=== PATIENT | female | born 1970 | race Caucasian/White ===

== ENCOUNTER → 2018-01-29 11:57 | Outpatient (CLI) | payer OTHER, SELFPAY ==
[2018-01-29 12:39] LABS: Hematocrit 39.2 % (36-46); Hemoglobin 13.3 g/dL (12.0-16.0); Platelet Count 316 X10^3/uL (150-400); Red Blood Cell Count 4.46 X10^6/uL (4.0-5.2); Red Cell Distribution Width 13.5 % (11.6-14.8); White Blood Cell Count 10.3 X10^3/uL (4.5-11.0)
== END ==
PROVIDERS: Visit Provider Orthopaedic Surgery
DX: Z01.818 Encounter for other preprocedural examination (principal)
CPT/HCPCS: 36415; 85027

== ENCOUNTER → 2019-11-09 12:44 | Outpatient (CLI) | payer OTHER, SELFPAY ==
[2019-11-09 13:57] LABS: Add Manual Diff / Slide Review NO; Basophils Absolute Auto 100 /uL (0-100); Basophils Percent Auto 0.6 % (0-2); Eosinophils Absolute Auto 300 /uL (0-450); Eosinophils Percent Auto 2.6 % (2-4); Hematocrit 39.4 % (36-46); Hemoglobin 13.3 g/dL (12.0-16.0); Lymphocytes Absolute Auto 2800 /uL (1100-4500); Lymphocytes Percent Auto 27.6 % (25-40); Mean Corpuscular HGB Conc 33.8 % (30-36); Mean Corpuscular Volume 88.8 fL (80-100); Monocytes Absolute Auto 700 /uL (0-900); Monocytes Percent Auto 6.9 % (3-14); Neutrophils Absolute Auto 6300 /uL (1500-7000); Neutrophils Percent Auto 62.3 % (50-75); Platelet Count 390 X10^3/uL (150-400); Red Blood Cell Count 4.44 X10^6/uL (4.0-5.2); Red Cell Distribution Width 12.9 % (11.6-14.8); White Blood Cell Count 10.1 X10^3/uL (4.5-11.0)
== END ==
PROVIDERS: Referring Provider Orthopaedic Surgery; Visit Provider Orthopaedic Surgery
DX: Z01.812 Encounter for preprocedural laboratory examination (principal)
CPT/HCPCS: 36415; 85025

== ENCOUNTER 2019-11-10 08:29 | Day surgery (SDC) | payer OTHER, SELFPAY ==
[2019-11-09 12:32] VITALS: BMI 26.9
[2019-11-10] VITALS (13 sets, daily range): BP systolic 126–181; BP diastolic 64–110; PULSE 73–104; RESP 9–32; TEMP 36.5–37.2; O2SAT 91–99; BMI 26.0
--- NOTE | 2019-11-10 | DI.RAD.S_ITS ---
PROCEDURE: XR CERVICAL SPINE 2V OR 3V INDICATIONS: C5-6, C6-7 ACDF MOBI C TECHNIQUE: 2 view(s) of the cervical spine were acquired. COMPARISON: [facility], MR, MR CERVICAL SPINE WITHOUT CONTRAST, 10/13/2019, 9:39. [facility] [place] Moffit, CR, XR CERVICAL SPINE 6+ VIEWS, 10/06/2019, 8:41. FINDINGS: Bones: Immediate postoperative examination after placement of C5-6 and C6-7 articulating intervertebral disc prosthesis devices, establishing normal alignment Soft tissues: No prevertebral soft tissue swelling. IMPRESSION: Normal alignment after articulating intervertebral disc devices at C5-6 and C6-7. Dictated by: Mendez Livingston M.D. on 11/10/2019 at 12:43 Approved by: Mendez Livingston M.D. on 11/10/2019 at 12:44
[2019-11-10] MEDS: LACTATED RINGERS 1,000 ML 42 ML IV ×2 (09:30→13:22)
[2019-11-10] MEDS: ACETAMINOPHEN 325 MG TABLET 975 MG PO (09:31)
[2019-11-10] MEDS: GABAPENTIN 600 MG TABLET PO ×2 (09:31→10:24)
--- NOTE | 2019-11-10 09:58 | PM.PREOP ---
Pre-operative Note Interval Note History & Physical reviewed/Exam performed by Physician: Yes Changes to H&P: No
[2019-11-10] MEDS: CEFAZOLIN 2 GM/100 ML FROZ.PIGGY IV (10:35)
--- NOTE | 2019-11-10 11:02 | SUR.OPER ---
Supine on padded OR bed, head on gel, towel between shoulder blades, arms padded and tucked at side, legs uncrossed, safety belt at thigh, tape over blanket over lower legs .
[2019-11-10] MEDS: BUPIVACAINE 0.25% W/ EPI 30 ML VIAL INJ (11:10)
[2019-11-10] MEDS: THROMBIN (RECOMBINANT) 5,000 UNIT VIAL 5000 UNIT TOP (11:11)
[2019-11-10] MEDS: SODIUM CHLORIDE 0.9% 1,000 ML, GENTAMICIN 80 MG IRR (11:11)
--- NOTE | 2019-11-10 12:30 | PM.OP.1 ---
Operative Date/Time/Diagnoses Date of procedure: 11/10/19 Time of procedure: 12:31 Pre-op diagnosis: Cervical disc herniation with radiculopathy Post-op diagnosis: same Procedure & Clinicians Procedure: C5-6, C6-7 anterior cervical diskectomy and artificial disc replacements Use of microscope Same procedure as scheduled: Yes Indications: [age] year old female with intractable pain and weakness from cervical disc herniations. They had failed conservative management and requested operative intervention. Risks and benefits of surgery were discussed and appropriate consents were obtained. Surgeon: Kendell Silva Office Support Clerk: Leanna Alexander Anesthesia Type: General Operative Notes Findings: None Closure Type: primary Specimen(s): none sent Prosthetic devices, grafts, tissues, transplants, or devices: Miesha Mobi-C Estimated Blood Loss (mL): 5 Procedure in detail: Patient was brought to the operating room and intubated on the table. A time-out was performed. Preoperative antibiotics were given. The neck was prepped and draped in the standard sterile fashion. Using a skin fold, we made a 3 cm oblique incision on the left side. We used Bovie to go through the platysma and then did a standard anterolateral blunt dissection down to the precervical fascia. Fascia was nicked and elevated up. A marker was placed and x-ray was taken for localization. We marked the midline. We then subperiosteally elevated up the longus colli muscles. Self-retaining retractors were placed at C6-7. Wesson pins were placed under x-ray guidance to be parallel to the endplates. We then brought in the microscope. A scalpel used to perform an annulotomy. We then used a combination of pituitaries and curettes and Kerrison to perform a complete anterior diskectomy at C6-7. We took down the PLL and used Kerrison and a nerve hook to remove the large left-sided posterior disc material. At the end we could from the nerve hook cephalad caudally and out the foramen and everything was opened. We distracted open with the parallel flight readiness technician. We then used the horseshoes for sizing. We then used the trials. We then inserted a 17 x 15 x 5 mm size Mobi-C artificial disc replacement under fluoroscopic guidance for positioning. The traction was released and x-ray was checked again. We then went up to the C5-6 level. Scalpel used to perform an annulotomy. Complete diskectomy was performed with curettes, pituitaries, Kerrison's. The PLL was taken down. We removed 3 posterior disc material and posterior osteophytes. A nerve hook was swept and everything was open. We then trialed and placed a 15 x 15 x 5 mm size Mobi-C ADR under fluoroscopic guidance for positioning. The self-retaining retractors and Wesson pins were removed and final x-rays taken. The wound was irrigated. There was no bleeding. The carotid was beating nicely. The platysma was closed. The superficial was closed. The skin was closed. A sterile dressing was placed. They were then extubated and brought to recovery room with no complications. Complications: none Post-operative Condition: stable Disposition: PACU Plan for aftercare: Outpatient, possibly with bed overnight.
[2019-11-10] MEDS: fentaNYL 100 MCG/2 ML INJ IV ×2 (12:50→12:57)
--- NOTE | 2019-11-10 12:54 | SUR.PHASEI ---
Patient arrived from OR, grimacing. Medicated for pain by Anesthesiologist.
[2019-11-10] MEDS: hydrOXYzine 50 MG/ML INJ 25 MG IM (12:58)
--- NOTE | 2019-11-10 13:09 | SUR.PHASEI ---
Report given to Yoli
[2019-11-10] MEDS: ONDANSETRON 4 MG/2 ML INJ IV (13:26)
[2019-11-10] MEDS: OXYCODONE IR 5 MG TABLET PO ×2 (13:26→14:14)
--- NOTE | 2019-11-10 13:34 | SUR.PHASEI ---
Patient tolerating PO fluids without difficulty. Pain 5/10. Oxygen remains at 97% on room air. GCS 15.
--- NOTE | 2019-11-10 15:42 | SUR.PHASEII ---
Order to D/C 3 hours after surgery.
== END 2019-11-10 15:42 | disposition home or self-care (01) ==
LOC: OR 08:30 → AC 08:32
PROVIDERS: Referring Provider Orthopaedic Surgery; Visit Provider Orthopaedic Surgery
PROC: (CPT 22856; principal; 2019-11-10 10:00)
DX: M50.122 Cervical disc disorder at C5-C6 level with radiculopathy (principal); I10 Essential (primary) hypertension; M19.90 Unspecified osteoarthritis, unspecified site
CPT/HCPCS: 22856; 22858; 72040; 76000; C1776; J0690; J1100; J1170; J2250; J2405; J2704; J3010; J3410

== ENCOUNTER → 2019-12-18 11:41 | Outpatient (CLI) | payer OTHER, SELFPAY ==
--- NOTE | 2019-12-18 | DI.MRI.S_ITS ---
PROCEDURE: MR LUMBAR SPINE WO/W CON INDICATIONS: Radiculopathy, lumbar region TECHNIQUE: Noncontrast sagittal T1 spin echo and T2 fast spin echo, sagittal STIR, axial T1 and T2 fast spin echo through the lumbar spine. In cases with scoliosis, additional coronal T2 fast spin echo may be performed. After the administration of contrast, sagittal and axial T1 spin echo with fat saturation through the lumbar spine. COMPARISON: None. FINDINGS: Image quality: Excellent. Alignment and curvature: There is overall straightening of the normal lumbar lordosis. There is minimal retrolisthesis at L4-L5 and mild grade 1 at the L5-S1 level. Marrow: Marrow is of normal overall signal. No acute vertebral body compression fractures. No suspicious marrow enhancement. Spinal cord: Conus medullaris terminates at the L1 level. Visualized spinal cord demonstrates normal signal, without suspicious enhancement. Paraspinous soft tissues: No paravertebral masses or abnormal enhancement. Incidental note is made of a circumaortic left renal vein. T12-L1: Normal appearance. L1-L2: Normal appearance. L2-L3: Normal appearance. L3-L4: The disc height and disk signal are well-preserved. Mild generalized disc bulge is seen. Mild bilateral neural foraminal narrowing is seen. Minimal central canal narrowing is seen. L4-L5: The disc height and disc signal are relatively well-preserved. A moderate disc bulge is seen, which is eccentric to the left. There is a left foraminal disc protrusion seen. There is moderate left-sided and minimal right-sided neural foraminal narrowing seen. There is a focal annular fissure seen posteriorly. Mild central canal narrowing is seen. L5-S1: Moderate loss of disc height is seen. Loss of disc signal is seen. Moderate disc bulge is seen, with a central disc extrusion. There is a focal annular fissure seen posteriorly. Mild facet joint hypertrophy is seen. Moderate central canal narrowing is seen. IMPRESSION: Lower lumbar spine degenerative changes are seen, which are most prominent at the L5-S1 level, where there is a central disc extrusion seen. Moderate bilateral neural foraminal narrowing and moderate central canal narrowing can be seen at this level. Incidental note is made of: Circumaortic left renal vein. Dictated by: Christian Bay M.D. on 12/18/2019 at 11:58 Approved by: Christian Bay M.D. on 12/18/2019 at 12:02
== END ==
PROVIDERS: Referring Provider Orthopaedic Surgery; Visit Provider Orthopaedic Surgery
DX: M51.16 Intervertebral disc disorders with radiculopathy, lumbar region (principal); M51.17 Intervertebral disc disorders with radiculopathy, lumbosacral region; M47.27 Other spondylosis with radiculopathy, lumbosacral region; M48.07 Spinal stenosis, lumbosacral region
CPT/HCPCS: 72158

== ENCOUNTER → 2020-01-12 09:00 | Outpatient (CLI) | payer OTHER, SELFPAY ==
[2020-01-12 09:28] LABS: Add Manual Diff / Slide Review NO; Basophils Absolute Auto 0 /uL (0-100); Basophils Percent Auto 0.4 % (0-2); Eosinophils Absolute Auto 300 /uL (0-450); Hematocrit 36.8 % (36-46); Hemoglobin 12.8 g/dL (12.0-16.0); Lymphocytes Absolute Auto 2000 /uL (1100-4500); Mean Corpuscular HGB Conc 34.9 % (30-36); Mean Corpuscular Hemoglobin 31.1 PG (26-34); Mean Corpuscular Volume 89.1 fL (80-100); Monocytes Absolute Auto 500 /uL (0-900); Monocytes Percent Auto 6.3 % (3-14); Neutrophils Absolute Auto 5800 /uL (1500-7000); Neutrophils Percent Auto 66.3 % (50-75); Platelet Count 296 X10^3/uL (150-400); Red Blood Cell Count 4.13 X10^6/uL (4.0-5.2); Red Cell Distribution Width 13.9 % (11.6-14.8); White Blood Cell Count 8.7 X10^3/uL (4.5-11.0)
== END ==
PROVIDERS: Referring Provider Orthopaedic Surgery; Visit Provider Orthopaedic Surgery
DX: Z01.812 Encounter for preprocedural laboratory examination (principal)
CPT/HCPCS: 36415; 85025

== ENCOUNTER → 2020-01-24 10:13 | Outpatient (CLI) | payer OTHER, SELFPAY ==
[2020-01-25 06:20] LABS: COVID19 Sendout Not Detected (Not Detect)
== END ==
PROVIDERS: Visit Provider Physician Assistant
DX: Z01.818 Encounter for other preprocedural examination (principal)
CPT/HCPCS: 87635

== ENCOUNTER 2020-01-26 10:54 | Inpatient (IN) | payer OTHER, SELFPAY ==
[2020-01-21 08:06] VITALS: BMI 26.9
[2020-01-26] VITALS (14 sets, daily range): BP systolic 124–157; BP diastolic 68–95; PULSE 70–87; RESP 8–19; TEMP 36.2–37.2; O2SAT 97–100; BMI 26.9
--- NOTE | 2020-01-26 | DI.RAD.S_ITS ---
PROCEDURE: XR LUMBAR SPINE 2-3V INDICATIONS: L5-S1 TLIF TECHNIQUE: 2 views of the lumbar spine were acquired. COMPARISON: None. FINDINGS: Bones: Immediate postoperative examination after L5-S1 posterior fusion with transverse pedicle screws and vertical fixation rods and an interbody disc cage prosthesis, maintaining normal alignment and interbody spacing. Soft tissues: Overlying bowel gas pattern is normal. No suspicious soft tissue calcifications. IMPRESSION: Normal alignment established after posterior fusion and interbody disc prosthesis placement. Dictated by: Mendez Livingston M.D. on 01/26/2020 at 15:34 Approved by: Mendez Livingston M.D. on 01/26/2020 at 15:35
[2020-01-26] MEDS: LACTATED RINGERS 1,000 ML 42 ML IV ×2 (11:27→14:54)
--- NOTE | 2020-01-26 12:18 | PM.PREOP ---
Pre-operative Note COVID-19 COVID-19 status: Negative Result date/Date tested (Pos, Neg/Pending): 01/24/20 Interval Note History & Physical reviewed/Exam performed by Physician: Yes Changes to H&P: No
[2020-01-26] MEDS: CEFAZOLIN 2 GM/100 ML FROZ.PIGGY IV ×2 (12:55→20:50)
[2020-01-26] MEDS: ACETAMINOPHEN IV 1,000 MG/100 ML VIAL 400 MG IV (13:20)
--- NOTE | 2020-01-26 13:41 | SUR.OPER ---
Prone on spine table, head in foam head support, padded chest and pelvic supports, gel pad at knees, lower legs supported by pillows; nipples, genitalia and toes free of pressure, arms secured on foam padded arm boards at <90 degrees abduction. Tape over blanket at thigh secured to table.
[2020-01-26] MEDS: VANCOMYCIN 1,000 MG VIAL 1000 MG TOP (13:51)
[2020-01-26] MEDS: BUPIVACAINE 0.5% (PF) 4 ML, MORPHINE-PF 4 MG, BUTORPHANOL 1 MG, fentaNYL 100 MCG INJ (13:52)
[2020-01-26] MEDS: THROMBIN (RECOMBINANT) 5,000 UNIT VIAL 5000 UNIT TOP (13:52)
[2020-01-26] MEDS: SODIUM CHLORIDE 0.9% 1,000 ML, GENTAMICIN 80 MG IRR (13:53)
--- NOTE | 2020-01-26 15:33 | P.OP_ITS ---
Operative Date/Time/Diagnoses Date of procedure: 01/26/20 Time of procedure: 15:33 Pre-op diagnosis: Recurrent lumbar disc herniation with radiculopathy Post-op diagnosis: same Procedure & Clinicians Procedure: Revision L5-S1 diskectomy L5-S1 TLIF (posterior/posterior interbody fusion) with cage and bone graft L5-S1 screws Use of microscope Placement of epidural catheter Same procedure as scheduled: Yes Indications: [age] year old female with intractable pain from recurrent lumbar disc herniation. They had failed conservative management and requested operative intervention. Risks and benefits of surgery were discussed and appropriate consents were obtained. Surgeon: Kendell Silva Diploma Medical Assistant: Felice Moncada Anesthesia Type: General Operative Notes Findings: None Closure Type: primary Specimen(s): none sent Prosthetic devices, grafts, tissues, transplants, or devices: NuVasive MAS Reli ne screws Globus Rise cage Applied: catheter Estimated Blood Loss (mL): 20 Blood products transfused: none Procedure in detail: The patient was brought to the operating room and intubated on the table. A time-out was performed. They were then rolled over to the well- padded John table in the prone position. Preoperative antibiotics were given. The back was prepped and draped in the standard sterile fashion. Using fluoroscopy, a 4 cm longitudinal incision was made to the well-marked left of the midline. We used Bovie to come down to and split the lumbodorsal fascia. Using fluoroscopy and monitoring, we then percutaneously placed Jamshidi needles down the pedicles of L5 and S1 on the left side. These were changed out to guidewires and then we tapped and then placed the NuVasive MAS Reline screw shanks. We then opened up the retractors and used Bovie to clear up the posterolateral gutter as well as medially along the lamina to the spinous processes. A bur was used to decorticate the transverse processes. We brought in the microscope. Using a combination of bur and Kerrison rongeurs, a laminectomy was performed from the left side. We cleared over just past the midline up to the level of her scar. We had to carefully retract the dura medially over the recurrent disc herniation and carefully dissect across the scar until it was retracted safely. A scalpel used to perform an annulotomy and then we removed the recurrent disc herniation with a pituitary. This completed the revision laminectomy and diskectomy at L5-S1. This was separate and distinct from a standard TLIF approach as this was revision surgery with scar with higher complexity and time to dissect and safely retract the nerves. We then began the TLIF prep. A complete facetectomy was performed on this side at L5-S1. We carefully cleaned up the remainder of the foramen until we could easily retract the exiting root as well as clearing medially below the dura and expose the disc space. We performed a diskectomy using a combination of paddles, lexie, pituitaries, and curettes. We distracted the disc using a paddle and locked the retractor in an open position. We then filled the disc space with AttraX bone graft. We then placed the globus Rise cage under fluoroscopy and then filled this in with more bone graft. The distraction on the retractor was released to compress down. This completed the posterior interbody fusion portion of the TLIF at L5-S1. We then placed the screw heads, tessa, and locked down the set screws. The wound was copiously irrigated. A small stab incision was made over the PSIS. We used a Jamshidi needle to aspirate several mL of bone marrow from the pelvis. This was mixed with the remaining bone graft and combined with all of the locally harvested bone graft and placed in the posterolateral gutter for the posterior fusion of the TLIF at L5-S1. An epidural catheter was then placed in the spinal canal by carefully depressing the dura and advancing it 6 cm cephalad under the remaining lamina without resistance. The muscle fascia was closed. The catheter was then injected with a solution containing 4 mL of 0.5% Marcaine, 1 mg Stadol, 4 mg Duramorph, and 100 mcg of fentanyl. This was injected without resistance and the catheter was p ulled. We then went to the opposite side. Again using fluoroscopy, a 3 cm incision was made and Bovie was used to come down to split the fascia. Using neural monitoring and fluoroscopy, Jamshidi needles were advanced down the pedicles of L5 and S1 on the right side. These were switched over guidewires, tapped, and screws placed. We then placed a tessa and locked the set screws on this side. The wound was irrigated. The fascia was closed. Vancomycin powder was placed in the wounds. The superficial and skin were closed. A sterile dressing was placed. The patient was then rolled over extubated and brought to recovery room without complications. Complications: none Post-operative Condition: stable Disposition: PACU Plan for aftercare: Admit outpatient with bed anticipate 2 days. Up with physical therapy.
[2020-01-26] MEDS: HYDROMORPHONE 2 MG INJ IV ×4 (15:41→15:59)
--- NOTE | 2020-01-26 16:33 | SUR.PHASEI ---
Report called to CASANDRA Hines.
--- NOTE | 2020-01-26 16:44 | SUR.PHASEI ---
Patient transferred to the floor. Report to Flora. VS stable. Dressing CDI. Belongings bag and glasses with patient. IV saline locked.
[2020-01-26] MEDS: LACTATED RINGERS 1,000 ML 125 ML IV (17:37)
[2020-01-26] MEDS: CELECOXIB 200 MG CAPSULE 400 MG PO (17:40)
--- NOTE | 2020-01-26 18:44 | PC.NURSE ---
Addendum entered by Flora Carey R.N. 01/26/20 21:14: @2100 pt reports 2/10 pain; PO pain med for bedtime Original Note: Pt transferred to floor from RENAE @ 1640; RA =100%; LS clear; c/m/s to BLLEs present with residual/chronic tingling to LLE; BL foot SCDs active; surgical drsg to lower back c/d/i; VSS; IV fluids infusing; pt tolerating dinner; IS output 1800; pt oriented to room and call light
[2020-01-26] MEDS: CELECOXIB 200 MG CAPSULE PO (20:50)
[2020-01-26] MEDS: SENNOSIDES 8.6 MG TABLET 17.2 MG PO (20:53)
[2020-01-26] MEDS: DOCUSATE 100 MG CAPSULE PO (20:53)
[2020-01-26] MEDS: OXYCODONE IR 5 MG TABLET PO (21:03)
[2020-01-26] MEDS: hydrOXYzine pamoate 25 MG CAPSULE PO (21:03)
[2020-01-26] MEDS: GABAPENTIN 600 MG TABLET 1800 MG PO (22:10)
[2020-01-27] MEDS: OXYCODONE IR 5 MG TABLET PO ×4 (01:16→17:29)
[2020-01-27] MEDS: hydrOXYzine pamoate 25 MG CAPSULE PO ×2 (01:16→20:32)
[2020-01-27] MEDS: LACTATED RINGERS 1,000 ML 125 ML IV (01:17)
[2020-01-27 03:26] VITALS: BP 110/65; PULSE 79; RESP 16; TEMP 36.9; O2SAT 98
[2020-01-27 06:01] LABS: Hematocrit 29.6 % (36-46)
[2020-01-27] MEDS: CEFAZOLIN 2 GM/100 ML FROZ.PIGGY IV (06:47)
--- NOTE | 2020-01-27 07:51 | PM.PNPO.1 ---
Subjective Subjective Date Patient Seen: 01/27/20 Time Patient Seen: 07:51 Interval history: Doing fairly well. The sensation feels like it is coming back in the left leg. Pain is about a 3 at rest, worse with any activity. Exam Vital Signs (past 8 hours): - 01/27/20 03:26 Temperature 98.5 F Pulse Rate 79 Respiratory Rate 16 Blood Pressure 110/65 Pulse Oximetry 98 Oxygen Delivery Method Room Air Oxygen Flow Rate 0 Const Orientation: alert and oriented x3 Back/Spine/Pelvis Other: Minimal dry drainage. 5/5 motor both lower extremities Objective Labs Result Diagrams: 01/27/20 05:44 Labs: Laboratory Results - last 24 hr 01/27/20 05:44 Hgb 10.0 L Hct 29.6 L Assessment & Plan Post-op Postoperative Procedures: Procedures Operation Date: 01/26/20 13:15 Actual Procedures Side Surgeon p L5-S1 redo Left discectomy & instrumented fusion (TLIF) w/bone graft Kendell Silva MD She is doing well. Mobilize with therapy today. Anticipate discharge home tomorrow. Quality VTE Deep Vein Thrombosis/Pulmonary Embolism Present on Admission: No
[2020-01-27 08:00] VITALS: BP 114/78; PULSE 76; RESP 16; TEMP 37; O2SAT 100
[2020-01-27] MEDS: DOCUSATE 100 MG CAPSULE PO ×2 (08:28→20:30)
[2020-01-27] MEDS: CELECOXIB 200 MG CAPSULE PO ×2 (08:28→20:30)
[2020-01-27] MEDS: LORATADINE 10 MG TABLET PO (08:28)
[2020-01-27] MEDS: GABAPENTIN 600 MG TABLET 1800 MG PO ×3 (08:28→20:30)
--- NOTE | 2020-01-27 09:10 | PT.IIE ---
Current Diagnoses Intervertebral disc disorders with radiculopathy, lumbar region (01/26/20) Other specified postprocedural states (01/26/20) Surgery Performed Operation Date: 01/26/20 13:15 Actual Procedures p L5-S1 redo Left discectomy & instrumented fusion (TLIF) w/bone graft - Kendell Silva MD Surgical History (Last Updated 01/21/20 @ 08:15 by Meli Villegas RN) H/O cervical spine surgery (Acute 11/10/19) Hx of arthroscopy of knee (Acute) Hx of eye surgery (Acute) Hx of microdiscectomy (Acute 02/03/18) Status post epidural steroid injection (Acute 10/26/19) Medical History (Last Updated 11/09/19 @ 12:37 by Meli Villegas RN) Arthritis (Acute) HTN (hypertension) (Acute) Neck pain (Acute) Physical Therapy Inpatient Evaluation/Re-Eval M1 PT/OT-IP Prior Functional Status Start: 01/27/20 11:34 Freq: NEEDED Status: Active Protocol: Document 01/27/20 09:10 AB (Rec: 01/27/20 12:03 AB [email or web address]) Medical Review Prior Functional Status Medical History Reviewed Yes Communication able to make needs known Mobility and Gait pt stated that she is independent with all mobilities and ambulation without AD Social History Household Members spouse Living Arrangements House Number of Floors (Floors) Two Floors Number of Stairs To Enter/Railing? 2 steps to enter without rail but with L wall bedroom basement: 7 steps with R rail and L ledge +landing+ & steps R rail L wall Home Environment Standard Height Toilet,Walk in Shower Additional Social History Comment has access to a 4WW, FWW and SPC but pt will confirm pt stated that she works from home daughter will stay with pt to assist her M2 PT-IP Current Condition Start: 01/27/20 11:34 Freq: NEEDED Status: Active Protocol: Document 01/27/20 09:10 AB (Rec: 01/27/20 12:03 AB [email or web address]) Physical Therapy Current Condition Current Condition Evaluation Date 01/27/20 Treatment Diagnosis s/p L5S1 revision diskectomy/ TLIF; difficulty in walking Onset Date 01/26/20 Precautions Lumbar Precautions Log Roll,No Twisting,Limit Bending,Lifting Restriction of 10 lbs,Gait Belt above Incisional Area M3 PT-IP Subjective Start: 01/27/20 11:34 Freq: NEEDED Status: Active Protocol: Document 01/27/20 09:10 AB (Rec: 01/27/20 12:03 AB [email or web address]) Subjective Physical Therapy Visit Type Type Initial Evaluation Visit Start Time 09:10 Visit Stop Time 09:44 Total Visit Minutes 34 Number of FLAG CAR DRIVER Visits 0 Physical Therapy Visit Comments Patient Comments pt is agreeable to do PT Therapy Pain Assessment Pain When Pain Assessed At Rest Pain Present Pain Present Pain Reported Location back Intensity 5 Scale Used Numeric (1 - 10) Pain Management Techniques Apply Cold,Re-positioning, Timing of Activity with Medications M4 PT-IP Mobility and Gait Start: 01/27/20 11:34 Freq: NEEDED Status: Active Protocol: Document 01/27/20 09:10 AB (Rec: 01/27/20 12:03 AB [email or web address]) PT-Bed Mobility Assessment Rolling Type of Rolling Log Rolling Supine to Sit Supine to Sit Contact Guard Assistance,1 Person Assistance Scooting Scooting to Edge of Bed Standby Assistance PT-Transfer Assessment Sit to and From Stand Sit to and from Stand Contact Guard Assistance,1 Person Assistance,Use of Upper Extremities Equipment Transfer Assistive Device Gait Belt,Front Wheeled Walker Orthotic/Prosthetic Devices or Brace: No Transfers Transfer Destination Chair Transfer Technique ambulated using FWW Transfer Ability Level of Assist Contact Guard Assistance,1 Person Assistance,Use of Upper Extremities Comments Mobility Comments BP: 120/78 in supine.educated on back precautions and pt able to recall. educated on log roll bed mobility. pt completed bed mobility supine to sit CGA and cues. pt presents with difficulty completing task and requires increase time to complete. pt was able to sit on EOB SBA. completed sit to stand CGA. pt ambulated in room ~ 40 ft using FWW CGA. c/o slight dizziness towards end of ambulation. pt agreed to sit up on chair. positioned pt on chair. BP 128/74. ice pack provided. call light and table placed within reach. Gait Assessment Gait Gait Assistance Required: Standby Assistance Distance (Feet) 40 Able to Maintain Weight Bearing Status Yes During Gait Assistive Devices Assistive Device Gait Belt,Front Wheeled Walker Orthotic/Prosthetic Devices or Brace: No Gait Deviations General Gait Pattern Antalgic,Decreased Stride Length,Decreased Feet Clearance,Step-to Gait Factors Limiting Gait Function Factors Limiting Gait Function Decreased Activity Tolerance, Decreased Sensation,Decreased Strength,Limited Range of Motion,Pain,Poor Balance PT-Balance Assessment Sitting Balance and Reactions Static Sitting Balance Ability Good Dynamic Sitting Balance Ability Good Standing Balance and Reactions Static Standing Balance Ability Fair Dynamic Standing Balance Ability Fair Device Used FWW M5 PT-IP Objective Assessments Start: 01/27/20 11:34 Freq: NEEDED Status: Active Protocol: Document 01/27/20 09:10 AB (Rec: 01/27/20 12:03 AB [email or web address]) Orientation Orientation/Cognition Level of Alertness Alert Orientation Name,Age,Birthday,Month,Date, Year,Day of Week,Place, Situation Language Function Ability No Deficits Noted Safety Awareness Understands Safety Issues Memory Description No Deficits Noted Gross Range of Motion Lower Extremity ROM Assessment Within Functional Limits Strength Lower Extremity Strength Assessment Within Functional Limits Coordination Assessment Gross Coordination Gross Coordination WNL Sensation Assessment Comments Sensation Comments Able to determine light touch during testing but stated that sensation is not 100% and still has some numbness Muscle Tone Muscle Tone WNL Yes M6 PT-IP Treatment Start: 01/27/20 11:34 Freq: NEEDED Status: Active Protocol: Document 01/27/20 09:10 AB (Rec: 01/27/20 12:03 AB [email or web address]) Physical Therapy Treatment Education Education Provided Precautions,Weight Bearing Status,Post-Op Packet,Safety M7 PT-IP Assessment and Plan Start: 01/27/20 11:34 Freq: NEEDED Status: Active Protocol: Document 01/27/20 09:10 AB (Rec: 01/27/20 12:03 AB [email or web address]) PT Summary Assessment and Plan Potential Rehabilitation Potential Good Status of Condition at Evaluation Stable Summary Impairments Pain,ROM,Strength,Balance, Sensation,Bed Mobility, Transfers,Gait,Activity Tolerance Assessment Summary pt requiring CGA with mobility and ambulation using FWW. pt stated that her daughter will be staying with her to assist her at home. caregiver training will be conducted if needed. stair climbing will be completed prior to d/c. Goals Bed Mobility Goal Independent Transfer Goal Independent,Front Wheeled Walker Gait Goal Independent,Front Wheel Walker Gait Distance 150 Other Goals up/down 2 steps using SPC and CAN BANDER OPERATOR CGA up/down 15 steps R rail SBA Days to Meet Goals 5 Frequency of Treatment Frequency Of Treatment Twice a Day Treatment Plan Physical Therapy Treatment Plan Bed Mobility Training,Transfer Training,Gait Training, Therapeutic Exercise,Balance Retraining,Post Op Education, Discharge Planning,Hot or Cold Pack,Neuromuscular Re-ed, Coordination Retraining,Manual Therapy Other Recommendations and Next Treatment ambulation, stair climbing , Focus bed mobility log roll Recommendations To Nursing Amount of Assist Needed 1 Person Assist Discharge Recommendations PT Discharge Recommendations Home with Assistance Equipment Needed for Home Before FWW/SPC Discharge Transportation Needs at Discharge Private Vehicle
--- NOTE | 2020-01-27 09:13 | CM.DANOTE ---
Patient is a 49 year old female who was admitted on 01/26/20 for planned TLIF. Pt has [employer]ALTH[employer] MNT for insurance and her PCP is Dr. Gayla Fuentes. EMR was reviewed. Per Ortho MD, pt tolerated procedure well and if stable may be able to d/c home tomorrow. Per RN, pt's saba cath just removed. PT/OT have been ordered and pending. SW met bedside with pt and explained role and updated whiteboard and pt confirms that she lives at home with her in [facility] and is independent with ADL's at baseline. Pt has not completed any DPOA pwk but her is her informal decision maker. Pt denies any hx of HH or SNF and does not anticipate any needs at discharge and and friend will be available for / assist for as long as needed. Plan: SW to follow for PT/OT initial eval and recommendations towards confirming pt safe for d/c home with and no further identified needs. BILLY Braden Discharge Planning/Care Management CM Discharge Assessment Start: 01/27/20 09:09 Freq: Status: Active Protocol: Document 01/27/20 09:10 BF (Rec: 01/27/20 09:13 [id number]) Discharge Planning Assessment Assigned Publication Editor BILLY Ramírez DPOA/Assigned Designee Name none Advance Directives? No Advance Directives on File No History Provided By Patient,Medical Record Has Patient been admitted in last 30 No days? Prior Living Arrangements House Household Members spouse Type of transporation used prior to Drives own vehicle admit Comment Lives at home with in [facility] and is mostly independent at baseline Independent with ADL's Yes Is patient alert and oriented? Yes Caregiver for Another No Community Services used prior to Physical Therapy admission: Patient/Family Preference OP PT Therapy Barriers to Discharge No Discharge Plan Home Community Services Physical Therapy Transportation Arrangement Spouse available to provide transport at d/c Referrals Initiated None needed Whiteboard Updated in Patient Room with Yes name and ext. # of Publication Editor Review Status In Process Please Provide Date Initial DC 01/27/20 Assessment Was Performed Next Review Type Continued Stay Review Pre-Anesthesia Assessment Start: 01/21/20 08:06 Freq: Status: Active Protocol: Document 01/21/20 08:06 CAB (Rec: 01/21/20 08:17 CAB [id number]) Pre-Anesthesia Assessment PAC Comment C5-7 ACDF 11/10/19 Patient Information Reviewed Via Chart Review H&P Completed Within 30 Days Yes Primary Care Provider Willian Solis Seen Specialist in Last 12 Months Yes Specialist Seen Orthopedist Primary Language Nauruan Sample Body Builder Required No Height 162.56 cm Weight 71.214 kg Body Mass Index (BMI) 26.9 Barriers to Learning None Other Aids No Hx Anesthesia Reactions No Hx Family Anesthesia Reaction No Hx Malignant Hyperthermia No Anesthesia Review Requested No Demand Manager No alcohol intake current alcohol intake frequency 0-2 drinks per day Smoking Status Former smoker how long ago did patient quit smoking quit > 10yrs Substance Use Type other Pain Present Pain Reported Musculoskeletal Symptoms Abnormal Gait,Back Pain, Difficulty Walking,Muscle Spasms,Muscle Weakness, Myalgias,Numbness,Radiating Pain into Limb History of Falling (Recent or History of No ) Patient is completely paralyzed or No completely immobile Mental Status Oriented to own ability Comment Pt is stumbling Is patient on oxygen? No Does patient have BOND/SOB No Hx Sleep Apnea No Currently Taking a Beta Kenneth No Hx Chest Pain No Hx SOB No Hx Syncope or Dizziness No Anti-Coagulant Therapy No Has a Rd Project Manager No Cardiac Testing No Hx Pacemaker/ICD No Pacemaker Rep Required? No Cardiac Clearance Received Not Applicable Urinary Catheter Present No Hx Urinary Self Catheterization No Diabetes No Patient No Lactating No Presence of External or Internal Medical Yes: Cervical disc replacement Devices Have you had any close contact with Unknown, chart review only someone diagnosed with COVID-19? Marital Status Lives With spouse Patient Discharge Plan Description Return Home Advance Directives? No Power of Jalousies Installer No
--- NOTE | 2020-01-27 10:15 | PC.NURSE ---
Assess- Patients lower back dressing is cdi, patient complains of a 4/10 pain, given 1 oxycodone and efffective for pain control. Up with physical therapy to the chair. She is sitting up in the chair now and is comfortable. Michelle taken out and patients urine, clear yellow. Appetite good.
[2020-01-27 12:00] VITALS: BP 111/73; PULSE 86; RESP 16; TEMP 36.9; O2SAT 99
--- NOTE | 2020-01-27 14:38 | PT.IPTN ---
Current Diagnoses Intervertebral disc disorders with radiculopathy, lumbar region (01/26/20) Other specified postprocedural states (01/26/20) Surgery Performed Operation Date: 01/26/20 13:15 Actual Procedures p L5-S1 redo Left discectomy & instrumented fusion (TLIF) w/bone graft - Kendell Silva MD Physical Therapy Treatment Note M2 PT-IP Current Condition Start: 01/27/20 11:34 Freq: NEEDED Status: Active Protocol: Document 01/27/20 09:10 AB (Rec: 01/27/20 12:03 AB [email or web address]) Physical Therapy Current Condition Current Condition Evaluation Date 01/27/20 Treatment Diagnosis s/p L5S1 revision diskectomy/ TLIF; difficulty in walking Onset Date 01/26/20 Precautions Lumbar Precautions Log Roll,No Twisting,Limit Bending,Lifting Restriction of 10 lbs,Gait Belt above Incisional Area M3 PT-IP Subjective Start: 01/27/20 11:34 Freq: NEEDED Status: Active Protocol: Document 01/27/20 14:38 AB (Rec: 01/27/20 16:37 AB [email or web address]) Subjective Physical Therapy Visit Type Type Treatment Note Visit Start Time 14:38 Visit Stop Time 14:57 Total Visit Minutes 19 Number of DOUGHNUT FRYER Visits 0 Physical Therapy Visit Comments Patient Comments pt agreeable to do PT Therapy Pain Assessment Pain When Pain Assessed At Rest Pain Present Pain Present Pain Reported Location back Intensity 5 Scale Used Numeric (1 - 10) Pain Management Techniques Apply Cold,Re-positioning, Timing of Activity with Medications M4 PT-IP Mobility and Gait Start: 01/27/20 11:34 Freq: NEEDED Status: Active Protocol: Document 01/27/20 14:38 AB (Rec: 01/27/20 16:37 AB [email or web address]) PT-Bed Mobility Assessment Rolling Type of Rolling Log Rolling Level of Assist Standby Assistance Supine to Sit Supine to Sit Standby Assistance Sit to Supine Sit to Supine Standby Assistance Scooting Scooting to Edge of Bed Standby Assistance Scooting Up and Down in Bed Standby Assistance PT-Transfer Assessment Sit to and From Stand Sit to and from Stand Standby Assistance Equipment Transfer Assistive Device Gait Belt,Front Wheeled Walker Orthotic/Prosthetic Devices or Brace: No Transfers Transfer Destination Chair Transfer Ability Level of Assist Standby Assistance,Use of Upper Extremities Comments Mobility Comments completed sit to stand from chair SBA. pt ambulated towards the stairs ~ 75 ft using FWW SBA. completed up/ down steps using L rail x 4 reps SBA. ambulated farther ~ 200 ft using FWW SBA. pt completed bed mobility supine< >sit SBA. pt wanted to stay up on chair and transferred from bed to chair using fWW SBA. positioned pt on chair. call light and table placed within reach. Gait Assessment Gait Gait Assistance Required: Standby Assistance Distance (Feet) 200 Able to Maintain Weight Bearing Status Yes During Gait Assistive Devices Assistive Device Gait Belt,Front Wheeled Walker Orthotic/Prosthetic Devices or Brace: No Gait Deviations General Gait Pattern Antalgic,Decreased Stride Length,Decreased Feet Clearance Factors Limiting Gait Function Factors Limiting Gait Function Decreased Activity Tolerance, Decreased Sensation,Decreased Strength,Limited Range of Motion,Pain Stair Climbing Assessment Evaluation Level of Assist On Stairs Standby Assistance Devices Stair Climbing Assistive Devices Left Railing Technique/Endurance Stair Climbing Direction Ascend and Descend Stair Climbing Technique Step Over Step,Step to Step Number of Steps Climbed 3 Stair Climbing Set # Repetitions (reps) 4 Comments Stair Climbing Comments up/down steps using L rail ascending with pt holding on to rail with B hands. pt completed step over step pattern with ascending but with step to step pattern with descending. pt required SBA M5 PT-IP Objective Assessments Start: 01/27/20 11:34 Freq: NEEDED Status: Active Protocol: Document 01/27/20 09:10 AB (Rec: 01/27/20 12:03 AB [email or web address]) Orientation Orientation/Cognition Level of Alertness Alert Orientation Name,Age,Birthday,Month,Date, Year,Day of Week,Place, Situation Language Function Ability No Deficits Noted Safety Awareness Understands Safety Issues Memory Description No Deficits Noted Gross Range of Motion Lower Extremity ROM Assessment Within Functional Limits Strength Lower Extremity Strength Assessment Within Functional Limits Coordination Assessment Gross Coordination Gross Coordination WNL Sensation Assessment Comments Sensation Comments Able to determine light touch during testing but stated that sensation is not 100% and still has some numbness Muscle Tone Muscle Tone WNL Yes M6 PT-IP Treatment Start: 01/27/20 11:34 Freq: NEEDED Status: Active Protocol: Document 01/27/20 14:38 AB (Rec: 01/27/20 16:37 AB [email or web address]) Physical Therapy Treatment Education Education Provided Precautions,Safety M7 PT-IP Assessment and Plan Start: 01/27/20 11:34 Freq: NEEDED Status: Active Protocol: Document 01/27/20 14:38 AB (Rec: 01/27/20 16:37 AB [email or web address]) PT Summary Assessment and Plan Potential Rehabilitation Potential Excellent Summary Impairments Pain,ROM,Strength,Balance, Coordination,Sensation,Tone, Cognition,Bed Mobility, Transfers,Gait,Activity Tolerance Progress Towards Goals Progressing Toward Goals Assessment Summary pt is progressing well with mobility and plans to go home with spouse. pt stated that her spouse was able to get a FWW for her to use. pt may go home when medically stable. Goals Bed Mobility Goal Independent Transfer Goal Independent,Front Wheeled Walker Gait Goal Independent,Front Wheel Walker Gait Distance 150 Other Goals up/down 2 steps using SPC and FOOD MIXER CGA up/down 15 steps R rail SBA Days to Meet Goals 5 Frequency of Treatment Frequency Of Treatment Twice a Day Treatment Plan Physical Therapy Treatment Plan Bed Mobility Training,Transfer Training,Gait Training, Therapeutic Exercise,Balance Retraining,Post Op Education, Discharge Planning,Hot or Cold Pack,Neuromuscular Re-ed, Coordination Retraining,Manual Therapy Other Recommendations and Next Treatment ambulation, stair climbing , Focus bed mobility log roll Recommendations To Nursing Amount of Assist Needed 1 Person Assist Discharge Recommendations PT Discharge Recommendations Home with Assistance Transportation Needs at Discharge Private Vehicle
--- NOTE | 2020-01-27 15:31 | OT.IP.EVAL ---
Current Diagnoses Intervertebral disc disorders with radiculopathy, lumbar region (01/26/20) Other specified postprocedural states (01/26/20) Surgery Performed Operation Date: 01/26/20 13:15 Actual Procedures p L5-S1 redo Left discectomy & instrumented fusion (TLIF) w/bone graft - Kendell Silva MD Past Medical History (Last Updated 11/09/19 @ 12:37 by Meli Villegas, RN) Arthritis (Acute) HTN (hypertension) (Acute) Neck pain (Acute) Surgical History (Last Updated 01/21/20 @ 08:15 by Meli Villegas RN) H/O cervical spine surgery (Acute 11/10/19) Hx of arthroscopy of knee (Acute) Hx of eye surgery (Acute) Hx of microdiscectomy (Acute 02/03/18) Status post epidural steroid injection (Acute 10/26/19) Occupational Therapy Inpatient Evaluation/Re-Eval M1 PT/OT-IP Prior Functional Status Start: 01/27/20 16:36 Freq: NEEDED Status: Active Protocol: Document 01/27/20 15:31 [facility] (Rec: 01/27/20 17:37 [facility] [id number]) Medical Review Prior Functional Status Medical History Reviewed Yes Communication able to make needs known Mobility and Gait pt stated that she is independent with all mobilities and ambulation without AD Activities of Daily Living and IADL's Pt needing increased time to complete ADL's and IADL's due to her back pain. Social History Household Members spouse Living Arrangements House Number of Floors (Floors) Two Floors Number of Stairs To Enter/Railing? 2 steps to enter without rail but with L wall bedroom basement: 7 steps with R rail and L ledge +landing+ & steps R rail L wall Home Environment Standard Height Toilet,Walk in Shower Additional Social History Comment has access to a 4WW, FWW and SPC but pt will confirm pt stated that she works from home daughter will stay with pt to assist her M2 OT-IP Current Condition Start: 01/27/20 16:36 Freq: Status: Active Protocol: Document 01/27/20 15:31 [facility] (Rec: 01/27/20 17:37 [facility] [id number]) Occupational Therapy Current Condition Current Condition Evaluation Date 01/27/20 Treatment Diagnosis Recurrent disc herniation , s/ p L5-S1 TLIF Diagnosis Onset Date 01/26/20 Weight Bearing Status Weight Bearing Status Weight Bear as Tolerated M3 OT- IP Subjective and Pain Start: 01/27/20 16:36 Freq: Status: Active Protocol: Document 01/27/20 15:31 [facility] (Rec: 01/27/20 17:37 [facility] [id number]) OT- Subjective Occupational Therapy Visit Type Type Initial Evaluation Visit Start Time 15:14 Visit Stop Time 15:31 Total Visit Minutes 17 Occupational Therapy Visit Comments Patient Comments Pt willing to work with OT for OT eval. Patient/Caregiver Goals To go home. OT Pain Assessment Pain When Pain Assessed During Mobility Pain Present Pain Present Pain Reported Location back Intensity 4 M4 OT- IP ADL's Start: 01/27/20 16:36 Freq: Status: Active Protocol: Document 01/27/20 15:31 [facility] (Rec: 01/27/20 17:37 [facility] [id number]) OT [id number] Comments OT Self-Feeding Comments NOt at meal time. OT ADL-Grooming Comments OT Grooming Comments Educated to spit into a cup or bend at her hips to spit into to sink in order to follow her back precation for oral care. OT ADL-Dressing Comments OT Dressing Comments Pt states to have family asist for socks. Educated to dress her weaker leg first , left side and then right side. OT ADL-Toileting General Evaluation Toileting Ability Standby Assistance,Minimal Assistance Comments OT Toileting Comments Pt not able to reach during practice to be able to wipe after a bowel movement, educated pt to look at getting a toilet paper aid. Otherwise due to her back precautions, pt not able to reach appropriately will need to have assist. OT ADL-Bathing Comments OT Bathing Comments Pt not wanting to shower at this time. M5 OT- IP IADL's Start: 01/27/20 16:36 Freq: Status: Active Protocol: Document 01/27/20 15:31 [facility] (Rec: 01/27/20 17:37 [facility] [id number]) OT-Instrumental Activities of Daily Living Home Safety Awareness Ability to Problem Solve Emergency Able to Problem Solve Situations Home Safety Comments Pt's family to assist with needs as needed. M6 OT- IP Functional Cognition Start: 01/27/20 16:36 Freq: Status: Active Protocol: Document 01/27/20 15:31 [facility] (Rec: 01/27/20 17:37 [facility] [id number]) Cognitive Factors Limiting Selfcare Function Cognitive Ability Level of Alertness Alert Patient Orientation Name,Age,Birthday,Month,Date, Year,Day of Week,Place, Situation Attention Span Ability Capable of Focused Attention, Capable of Sustained Attention Ability to Follow Commands Able to Follow Multi-Step Commands Cognitive Comments Cognitive Assessment Comments Pt at baseline and good awareness of back precautions and need for assist. OT- Vision and Hearing OT- Hearing Assessment OT- Hearing Assessment WFL OT- Vision Assessment Visual Acuity WFL M7 OT- IP Mobility and Balance Start: 01/27/20 16:36 Freq: Status: Active Protocol: Document 01/27/20 15:31 [facility] (Rec: 01/27/20 17:37 [facility] [id number]) OT-Transfer Assessment Sit to and From Stand Sit to and from Stand Standby Assistance Transfers Transfer Ability Standby Assistance Technique Transfer Destination Chair,Toilet Devices Transfer Assistive Devices Gait Belt,Front Wheeled Walker Comments Mobility Comments SBA with FWW, pt's to get FWW for pt. OT- Balance Assessment Sitting Balance and Reactions Static Sitting Balance Ability Normal Dynamic Sitting Balance Ability Good Standing Balance and Reactions Static Standing Balance Ability Fair M8 OT- IP Objective Assessments Start: 01/27/20 16:36 Freq: Status: Active Protocol: Document 01/27/20 15:31 [facility] (Rec: 01/27/20 17:37 [facility] [id number]) OT Gross Range of Motion Upper Extremity Range of Motion Assessment Within Functional Limits OT Strength Upper Extremity Strength Assessment Within Functional Limits M9 OT- IP Assessment and Plan Start: 01/27/20 16:36 Freq: Status: Active Protocol: Document 01/27/20 15:31 [facility] (Rec: 01/27/20 17:37 [facility] [id number]) OT Summary Assessment and Plan Potential Rehabilitation Potential Excellent Analytic Complexity at Evaluation Low Summary OT Impairments Balance,Functional Mobility, Dressing,Toileting,Bathing, Shower Transfers Progress Towards Goals Progressing Toward Goals Assessment Summary Pt low complexity doing well and main barriers are steps and now not able to do her own pericare needs and able to suggest for pt to get a toilet paper aid. Pt has a supportive family to asisst at home. Pt looking to go home tomorrow. Goals Shower Transfer Goal Standby Assistance Patient/Caregiver Education Goal Demonstrate Post-Op Precautions Days to Meet Goals 1 Frequency of Treatment Frequency Of Treatment Once a Day Treatment Plan OT Treatment Plan Patient/Family Education, Discharge Planning Other Treatment Recommendations and Next Shower if pt willing. Treatment Focus Discharge Recommendations OT Discharge Recommendations Home with Assistance Home Equipment Needs FWW Transportation Needs at Discharge Private Vehicle
[2020-01-27 15:37] VITALS: BP 128/75; PULSE 83; RESP 20; TEMP 37.1; O2SAT 100
--- NOTE | 2020-01-27 16:54 | PC.NURSE ---
Addendum entered by Flora Carey R.N. 01/27/20 22:15: @ 2200 pt c/o blood in sputum when brushing teeth, saying it wasn't from my teeth, it was from my throat; I feel like my throat has a mucus plug in it. Slight redness noted to uvula. Pt would like to speak with doctor about her throat in the morning. Original Note: Pt reports 4/10 pain to lower back; ice to back, sitting up in chair; in room; IS 1800, ls clear, O2 XI=700%; SCDs off for activity; c/m/s present to Allison, PPP; call light within reach
[2020-01-27] MEDS: OXYCODONE IR 5 MG TABLET 10 MG PO ×2 (17:44→20:29)
[2020-01-27] MEDS: SENNOSIDES 8.6 MG TABLET 17.2 MG PO (20:30)
[2020-01-27 20:43] VITALS: BP 129/78; PULSE 85; RESP 18; TEMP 37.1
[2020-01-28] MEDS: OXYCODONE IR 5 MG TABLET 10 MG PO ×4 (01:28→16:54)
[2020-01-28 01:36] VITALS: BP 125/80; PULSE 89; RESP 16; TEMP 36.8; O2SAT 99
--- NOTE | 2020-01-28 06:50 | PM.PNPO.1 ---
Subjective Subjective Date Patient Seen: 01/28/20 Time Patient Seen: 06:50 Interval history: The epidural wore off yesterday and she has been having increasing pain. It is about 9/10 right now. A large amount of pain in the buttock and some radiation going down the left leg again Exam Vital Signs (past 8 hours): - 01/28/20 01:36 Temperature 98.2 F Pulse Rate 89 Respiratory Rate 16 Blood Pressure 125/80 Pulse Oximetry 99 Oxygen Delivery Method Room Air Oxygen Flow Rate 0 Const Orientation: alert and oriented x3 Back/Spine/Pelvis Other: Mild unchanged drainage on dressing. 5/5 motor both lower extremities. Objective Labs Result Diagrams: 01/27/20 05:44 Labs: Laboratory Results - last 24 hr 01/27/20 05:44 Hgb 10.0 L Hct 29.6 L Assessment & Plan Post-op Postoperative Procedures: Procedures Operation Date: 01/26/20 13:15 Actual Procedures Side Surgeon p L5-S1 redo Left discectomy & instrumented fusion (TLIF) w/bone graft Kendell Silva MD I think this is probably postoperative inflammation. I offered to give her some steroid medication but she does not like the side effects from steroids so we will hold off on that now. She would like to just go up on her regular gabapentin. If this settles down could possibly go home today. If not may need 1 more day for pain control. Quality VTE Deep Vein Thrombosis/Pulmonary Embolism Present on Admission: No
[2020-01-28 07:41] VITALS: BP 124/81; PULSE 95; RESP 16; TEMP 37.6; O2SAT 95
[2020-01-28] MEDS: CELECOXIB 200 MG CAPSULE PO ×2 (08:39→20:50)
[2020-01-28] MEDS: DOCUSATE 100 MG CAPSULE PO ×2 (08:39→20:50)
[2020-01-28] MEDS: GABAPENTIN 600 MG TABLET 1800 MG PO ×4 (08:39→20:50)
[2020-01-28] MEDS: LORATADINE 10 MG TABLET PO (08:39)
[2020-01-28] MEDS: ENSKYCE 2 EACH PO (09:06)
--- NOTE | 2020-01-28 10:49 | PT.IPTN ---
Current Diagnoses Intervertebral disc disorders with radiculopathy, lumbar region (01/26/20) Other specified postprocedural states (01/26/20) Surgery Performed Operation Date: 01/26/20 13:15 Actual Procedures p L5-S1 redo Left discectomy & instrumented fusion (TLIF) w/bone graft - Kendell Silva MD Physical Therapy Treatment Note M2 PT-IP Current Condition Start: 01/27/20 11:34 Freq: NEEDED Status: Active Protocol: Document 01/27/20 09:10 AB (Rec: 01/27/20 12:03 AB [email or web address]) Physical Therapy Current Condition Current Condition Evaluation Date 01/27/20 Treatment Diagnosis s/p L5S1 revision diskectomy/ TLIF; difficulty in walking Onset Date 01/26/20 Precautions Lumbar Precautions Log Roll,No Twisting,Limit Bending,Lifting Restriction of 10 lbs,Gait Belt above Incisional Area M3 PT-IP Subjective Start: 01/27/20 11:34 Freq: NEEDED Status: Active Protocol: Document 01/28/20 10:10 SP (Rec: 01/28/20 17:35 SP [id number]) Subjective Physical Therapy Visit Type Type Treatment Note Visit Start Time 10:10 Visit Stop Time 10:49 Total Visit Minutes 39 Number of ALL SOURCE COLLECTION MANAGER Visits 1 Physical Therapy Visit Comments Patient Comments Pt agreeable to working with therapy on second attempt, in pain earlier. Patient Goals Return home with family Therapy Pain Assessment Pain When Pain Assessed At Rest Pain Present Pain Present Pain Reported Location back Intensity 7 Scale Used 7/10 at rest, 8/10 with mobililty (pre medicated) Pain Management Techniques Apply Cold,Modification of Treatment,Re-positioning, Timing of Activity with Medications M4 PT-IP Mobility and Gait Start: 01/27/20 11:34 Freq: NEEDED Status: Active Protocol: Document 01/28/20 10:10 SP (Rec: 01/28/20 17:35 SP [id number]) PT-Bed Mobility Assessment Rolling Type of Rolling Log Rolling,Bilateral Level of Assist Contact Guard Assistance,1 Person Assistance Supine to Sit Supine to Sit Contact Guard Assistance,1 Person Assistance Sit to Supine Sit to Supine Minimal Assistance,Bedrails Scooting Scooting to Edge of Bed Contact Guard Assistance PT-Transfer Assessment Sit to and From Stand Sit to and from Stand Contact Guard Assistance, Minimal Assistance,1 Person Assistance,Use of Upper Extremities Equipment Transfer Assistive Device Gait Belt,Front Wheeled Walker Orthotic/Prosthetic Devices or Brace: No Transfers Transfer Destination Bed Transfer Technique ambulated using FWW Transfer Ability Level of Assist Contact Guard Assistance,Use of Upper Extremities Comments Mobility Comments Pt in to much pain earlier in am toileting with PR MANAGER, when arrived. Pt premedicated and rested when arrived later am reporting 7/10 pain but willing to try activity. log roll SBA with cuing and education for shld/knees together log roll with self contact hand on knees CGA completed using bed rail. L side lying to sit CGA at L shld and self scoot to EOB with required increase time due to pain. Sit to stand successful on 2nd attempt using FWW and Min A with cuing for B quad activation knee extension to standing and UE heavy WB on FWW with push from bed. Instructed patient wt shifting and smal march pre gait movement. Pt was able to ambulate further distance into hallway around nursing station 212 ft using FWW CGA- SBA with 3 stopped stand rests , declined w/c follow I can do this just need to stand for a second. Sitting to supine when returned to room Min A for LLE into bed and occasional cuing for centering herself. Educated/instructed patient in core engagement to assist spinal stabilization during mobility and supine with heel slides and use of pillows under thighs for LB comfort/support. Pt had all needs and and call light in reach before left. Gait Assessment Gait Gait Assistance Required: Standby Assistance,Contact Guard Assist,1 Person Assist Distance (Feet) 212 Able to Maintain Weight Bearing Status Yes During Gait Assistive Devices Assistive Device Gait Belt,Front Wheeled Walker Orthotic/Prosthetic Devices or Brace: No Gait Deviations General Gait Pattern Antalgic,Decreased Stride Length,Decreased Feet Clearance Factors Limiting Gait Function Factors Limiting Gait Function Decreased Activity Tolerance, Decreased Sensation,Decreased Strength,Limited Range of Motion,Pain Comments Gait Comments See mobility comments. Stair Climbing Assessment Comments Stair Climbing Comments Pt declined due to elevated pain reported. PT-Balance Assessment Sitting Balance and Reactions Static Sitting Balance Ability Normal Dynamic Sitting Balance Ability Good Standing Balance and Reactions Static Standing Balance Ability Fair Dynamic Standing Balance Ability Fair Device Used FWW M5 PT-IP Objective Assessments Start: 01/27/20 11:34 Freq: NEEDED Status: Active Protocol: Document 01/27/20 09:10 AB (Rec: 01/27/20 12:03 AB [email or web address]) Orientation Orientation/Cognition Level of Alertness Alert Orientation Name,Age,Birthday,Month,Date, Year,Day of Week,Place, Situation Language Function Ability No Deficits Noted Safety Awareness Understands Safety Issues Memory Description No Deficits Noted Gross Range of Motion Lower Extremity ROM Assessment Within Functional Limits Strength Lower Extremity Strength Assessment Within Functional Limits Coordination Assessment Gross Coordination Gross Coordination WNL Sensation Assessment Comments Sensation Comments Able to determine light touch during testing but stated that sensation is not 100% and still has some numbness Muscle Tone Muscle Tone WNL Yes M6 PT-IP Treatment Start: 01/27/20 11:34 Freq: NEEDED Status: Active Protocol: Document 01/28/20 10:10 SP (Rec: 01/28/20 17:35 SP [id number]) Physical Therapy Treatment Other Treatments Other Treatment Performed see mobility comments. M7 PT-IP Assessment and Plan Start: 01/27/20 11:34 Freq: NEEDED Status: Active Protocol: Document 01/28/20 10:10 SP (Rec: 01/28/20 17:35 SP [id number]) PT Summary Assessment and Plan Potential Rehabilitation Potential Excellent Status of Condition at Evaluation Stable Summary Impairments Pain,ROM,Strength,Balance, Coordination,Sensation,Tone, Cognition,Bed Mobility, Transfers,Gait,Activity Tolerance Progress Towards Goals Progressing Toward Goals Assessment Summary pt required CGA- Min A during mobility this am and plans to go home with spouse hoping tomorrow to much pain today. pt stated that her spouse was able to get a FWW for her to use. pt may go home when pain controlled and medically stable. Goals Bed Mobility Goal Independent Transfer Goal Independent,Front Wheeled Walker Gait Goal Independent,Front Wheel Walker Gait Distance 150 Other Goals up/down 2 steps using SPC and SHIPPING CLERK PACKING CGA up/down 15 steps R rail SBA Days to Meet Goals 5 Frequency of Treatment Frequency Of Treatment Twice a Day Treatment Plan Physical Therapy Treatment Plan Bed Mobility Training,Transfer Training,Gait Training, Therapeutic Exercise,Balance Retraining,Post Op Education, Discharge Planning,Hot or Cold Pack,Neuromuscular Re-ed, Coordination Retraining,Manual Therapy Other Recommendations and Next Treatment ambulation, stair climbing , Focus bed mobility log roll Recommendations To Nursing Amount of Assist Needed Standby Assistance Discharge Recommendations PT Discharge Recommendations Home with Assistance Transportation Needs at Discharge Private Vehicle
--- NOTE | 2020-01-28 11:29 | PC.NURSE ---
Addendum entered by Estefanía Srivastvaa R.N. 01/28/20 14:11: Patient given another 10mg of po oxycodone for complaints of 7/10 pain. She complained of a headache and is napping now. Original Note: Patients dressing to lower back is cdi. Patient medicated with 10mg of oxycodone and helpful. Up with 1 PA and walker, moving a bit slower than yesterday. Given control medication. Patients mom is visiting now.
--- NOTE | 2020-01-28 13:56 | OT.IPNOTE ---
Pt at this time wanting to rest and not wanting to do OT treatment today. However willing to shower tomorrow morning for OT.
--- NOTE | 2020-01-28 16:11 | PC.NURSE ---
Pt up ambulating w/PT w/o incidence. \
--- NOTE | 2020-01-28 16:11 | PC.NURSE ---
Addendum entered by Yris Duke R.N. 01/28/20 22:23: Pt had relatively uneventful; evening. Med @ 1700 for discomfort w/good relief. HL intact/patent. Satisfactory post op course. Call light w/in reach, bed alarm on for pt safety. Continue w/plan of care. Original Note: Pt ambulating hallway w/ PT w/o incidence. Lungs clear, SpO2 97% RA HL right hand/intact/patent. Dsg to back CDI. Call light w/in reach. Calls appropriately for needs.
--- NOTE | 2020-01-28 16:16 | PT.IPTN ---
Current Diagnoses Intervertebral disc disorders with radiculopathy, lumbar region (01/26/20) Other specified postprocedural states (01/26/20) Surgery Performed Operation Date: 01/26/20 13:15 Actual Procedures p L5-S1 redo Left discectomy & instrumented fusion (TLIF) w/bone graft - Kendell Silva MD Physical Therapy Treatment Note M2 PT-IP Current Condition Start: 01/27/20 11:34 Freq: NEEDED Status: Active Protocol: Document 01/27/20 09:10 AB (Rec: 01/27/20 12:03 AB [email or web address]) Physical Therapy Current Condition Current Condition Evaluation Date 01/27/20 Treatment Diagnosis s/p L5S1 revision diskectomy/ TLIF; difficulty in walking Onset Date 01/26/20 Precautions Lumbar Precautions Log Roll,No Twisting,Limit Bending,Lifting Restriction of 10 lbs,Gait Belt above Incisional Area M3 PT-IP Subjective Start: 01/27/20 11:34 Freq: NEEDED Status: Active Protocol: Document 01/28/20 15:48 SP (Rec: 01/28/20 17:50 SP [id number]) Subjective Physical Therapy Visit Type Type Treatment Note Visit Start Time 15:48 Visit Stop Time 16:16 Total Visit Minutes 28 Number of CORRECTIONS NURSE Visits 2 Physical Therapy Visit Comments Patient Comments Pt agreeable to working with therapy. Patient Goals Return home with family tomorrow. Therapy Pain Assessment Pain When Pain Assessed At Rest Pain Present Pain Present Pain Reported Location back Intensity 8 Scale Used 8/10 at rest, same with mobility (premedicated) Pain Management Techniques Apply Cold,Modification of Treatment,Re-positioning, Timing of Activity with Medications M4 PT-IP Mobility and Gait Start: 01/27/20 11:34 Freq: NEEDED Status: Active Protocol: Document 01/28/20 15:48 SP (Rec: 01/28/20 17:50 SP [id number]) PT-Bed Mobility Assessment Rolling Type of Rolling Log Rolling,Bilateral Level of Assist Standby Assistance Supine to Sit Supine to Sit Standby Assistance Sit to Supine Sit to Supine Standby Assistance Scooting Scooting to Edge of Bed Standby Assistance,Contact Guard Assistance PT-Transfer Assessment Sit to and From Stand Sit to and from Stand Standby Assistance,Contact Guard Assistance,1 Person Assistance,Use of Upper Extremities Equipment Transfer Assistive Device Gait Belt,Front Wheeled Walker Orthotic/Prosthetic Devices or Brace: No Transfers Transfer Destination Bed Transfer Technique ambulated using FWW Transfer Ability Level of Assist Standby Assistance,Contact Guard Assistance,Use of Upper Extremities Comments Mobility Comments Pt elevated supine when arrived. Log roll to L SBA, L sidelying to sitting <> sBA with occasional cuing as needed for spinal stabilization, sit to stand CGA using FWW with improvement in LE extension into standing this pm. Pt complete some wt shifting and october pre gait activities then was willing to walk into hallway and do some stairs this pm. Ambulated 212 ft with no stopped rests CGA initially then decreased to sBA and ascend descend 6 stairs CGA side stepping L HR with good spinal alignment step to gait then up/down 1 platform step using FWW CGA. Pt complete sitting to supine sBA and CORRECTIONS NURSE refilled cold pack and positioning durign roll onto LB for assist pain control and assisted pillow under legs positioning. Pt had bed alarmed, call light and all needs in reach before left . Gait Assessment Gait Gait Assistance Required: Standby Assistance,Contact Guard Assist Distance (Feet) 212 Able to Maintain Weight Bearing Status Yes During Gait Assistive Devices Assistive Device Gait Belt,Front Wheeled Walker Orthotic/Prosthetic Devices or Brace: No Gait Deviations General Gait Pattern Antalgic,Decreased Stride Length,Decreased Feet Clearance Factors Limiting Gait Function Factors Limiting Gait Function Decreased Activity Tolerance, Decreased Sensation,Decreased Strength,Limited Range of Motion,Pain Comments Gait Comments See mobility comments. Stair Climbing Assessment Evaluation Level of Assist On Stairs Contact Guard Assistance,1 Person Assistance Devices Stair Climbing Assistive Devices Left Railing Technique/Endurance Stair Climbing Direction Ascend and Descend Stair Climbing Technique Step to Step Number of Steps Climbed 3 Stair Climbing Set # Repetitions (reps) 2 Comments Stair Climbing Comments see mobilitiy comments. PT-Balance Assessment Sitting Balance and Reactions Static Sitting Balance Ability Normal Dynamic Sitting Balance Ability Good Standing Balance and Reactions Static Standing Balance Ability Good Dynamic Standing Balance Ability Fair Device Used FWW M5 PT-IP Objective Assessments Start: 01/27/20 11:34 Freq: NEEDED Status: Active Protocol: Document 01/27/20 09:10 AB (Rec: 01/27/20 12:03 AB [email or web address]) Orientation Orientation/Cognition Level of Alertness Alert Orientation Name,Age,Birthday,Month,Date, Year,Day of Week,Place, Situation Language Function Ability No Deficits Noted Safety Awareness Understands Safety Issues Memory Description No Deficits Noted Gross Range of Motion Lower Extremity ROM Assessment Within Functional Limits Strength Lower Extremity Strength Assessment Within Functional Limits Coordination Assessment Gross Coordination Gross Coordination WNL Sensation Assessment Comments Sensation Comments Able to determine light touch during testing but stated that sensation is not 100% and still has some numbness Muscle Tone Muscle Tone WNL Yes M6 PT-IP Treatment Start: 01/27/20 11:34 Freq: NEEDED Status: Active Protocol: Document 01/28/20 15:48 SP (Rec: 01/28/20 17:50 SP [id number]) Physical Therapy Treatment Education Education Provided Precautions,Safety M7 PT-IP Assessment and Plan Start: 01/27/20 11:34 Freq: NEEDED Status: Active Protocol: Document 01/28/20 15:48 SP (Rec: 01/28/20 17:50 SP [id number]) PT Summary Assessment and Plan Potential Rehabilitation Potential Excellent Status of Condition at Evaluation Stable Summary Impairments Pain,ROM,Strength,Balance, Coordination,Sensation,Tone, Cognition,Bed Mobility, Transfers,Gait,Activity Tolerance Progress Towards Goals Progressing Toward Goals,Slow Progress due to Pain Assessment Summary pt required CGA- SBA during all mobility this pm and plans to go home with spouse hoping tomorrow, i mproving in pain this pm. pt stated that her spouse was able to get a FWW for her to use. pt may go home when pain controlled and medically stable. Goals Bed Mobility Goal Independent Transfer Goal Independent,Front Wheeled Walker Gait Goal Independent,Front Wheel Walker Gait Distance 150 Other Goals up/down 2 steps using SPC and SALON SHAMPOO ASSISTANT CGA up/down 15 steps R rail SBA Days to Meet Goals 5 Frequency of Treatment Frequency Of Treatment Twice a Day Treatment Plan Physical Therapy Treatment Plan Bed Mobility Training,Transfer Training,Gait Training, Therapeutic Exercise,Balance Retraining,Post Op Education, Discharge Planning,Hot or Cold Pack,Neuromuscular Re-ed, Coordination Retraining,Manual Therapy Other Recommendations and Next Treatment ambulation further distance, Focus stair climbing SPC 2 step mgt, 14 steps L HR, bed mobility continue log roll Recommendations To Nursing Amount of Assist Needed 1 Person Assist Discharge Recommendations PT Discharge Recommendations Home with Assistance Transportation Needs at Discharge Private Vehicle
[2020-01-28 16:20] VITALS: BP 140/82; PULSE 95; RESP 20; TEMP 37.2; O2SAT 97
[2020-01-28 19:43] VITALS: BP 132/79; PULSE 99; RESP 20; TEMP 37.7
[2020-01-28] MEDS: SENNOSIDES 8.6 MG TABLET 17.2 MG PO (20:53)
[2020-01-28] MEDS: hydrOXYzine pamoate 25 MG CAPSULE PO (20:58)
[2020-01-29 00:05] VITALS: BP 143/80; PULSE 91; RESP 12; TEMP 36.6; O2SAT 98
[2020-01-29] MEDS: OXYCODONE IR 5 MG TABLET 10 MG PO ×2 (00:16→04:21)
[2020-01-29] MEDS: hydrOXYzine pamoate 25 MG CAPSULE PO (04:21)
--- NOTE | 2020-01-29 07:34 | PM.PNPO.1 ---
Subjective Subjective Date Patient Seen: 01/29/20 Time Patient Seen: 07:35 Interval history: She is doing better today. However, sitting causes increasing pain in the posterolateral aspect of the left leg Exam Vital Signs (past 8 hours): - 01/29/20 00:05 Temperature 97.9 F Pulse Rate 91 H Respiratory Rate 12 Blood Pressure 143/80 H Pulse Oximetry 98 Oxygen Delivery Method Room Air Oxygen Flow Rate 0 Const Orientation: alert and oriented x3 Back/Spine/Pelvis Other: CDI. 5/5 motor both lower extremities. Objective Labs Result Diagrams: 01/27/20 05:44 Assessment & Plan Post-op Postoperative Procedures: Procedures Operation Date: 01/26/20 13:15 Actual Procedures Side Surgeon p L5-S1 redo Left discectomy & instrumented fusion (TLIF) w/bone graft Kendell Silva MD Again, I think this is normal postoperative inflammation. She does not normally like taking steroids but she would like to see if this can get better now. I will give her 1 time dose of IV steroids as well as sending her home with orals with a Medrol Dosepak. I will recheck her in a few hours to see how she is doing. Quality VTE Deep Vein Thrombosis/Pulmonary Embolism Present on Admission: No
[2020-01-29 08:10] VITALS: BP 119/79; PULSE 84; RESP 16; TEMP 36.9; O2SAT 99
[2020-01-29] MEDS: DOCUSATE 100 MG CAPSULE PO (08:16)
[2020-01-29] MEDS: CELECOXIB 200 MG CAPSULE PO (08:16)
[2020-01-29] MEDS: OXYCODONE IR 5 MG TABLET PO (08:17)
[2020-01-29] MEDS: DEXAMETHASONE 10 MG/ML VIAL IV (08:17)
[2020-01-29] MEDS: LORATADINE 10 MG TABLET PO (08:17)
[2020-01-29] MEDS: GABAPENTIN 600 MG TABLET 1800 MG PO (08:17)
[2020-01-29] MEDS: ENSKYCE 1 EACH PO (08:20)
[2020-01-29] MEDS: SODIUM CHLORIDE 0.9% FLUSH 10 ML IV (08:21)
--- NOTE | 2020-01-29 09:17 | OT.IP.TRT ---
Current Diagnoses Intervertebral disc disorders with radiculopathy, lumbar region (01/26/20) Other specified postprocedural states (01/26/20) Surgery Performed Operation Date: 01/26/20 13:15 Actual Procedures p L5-S1 redo Left discectomy & instrumented fusion (TLIF) w/bone graft - Kendell Silva MD Occupational Therapy Treatment Note M2 OT-IP Current Condition Start: 01/27/20 16:36 Freq: Status: Active Protocol: Document 01/27/20 15:31 [facility] (Rec: 01/27/20 17:37 [facility] [id number]) Occupational Therapy Current Condition Current Condition Evaluation Date 01/27/20 Treatment Diagnosis Recurrent disc herniation , s/ p L5-S1 TLIF Diagnosis Onset Date 01/26/20 Weight Bearing Status Weight Bearing Status Weight Bear as Tolerated M3 OT- IP Subjective and Pain Start: 01/27/20 16:36 Freq: Status: Active Protocol: Document 01/29/20 10:09 [facility] (Rec: 01/29/20 10:18 [facility] [id number]) OT- Subjective Occupational Therapy Visit Type Type Treatment Note Visit Start Time 08:49 Visit Stop Time 09:17 Total Visit Minutes 28 Occupational Therapy Visit Comments Patient Comments Pt agreeing to shower. Nursing states to change out her dressing after the shower. Patient/Caregiver Goals To go home. OT Pain Assessment Pain When Pain Assessed At Rest Pain Present Pain Present Pain Reported Location back Intensity 6 Scale Used Numeric (1 - 10) M4 OT- IP ADL's Start: 01/27/20 16:36 Freq: Status: Active Protocol: Document 01/29/20 10:09 [facility] (Rec: 01/29/20 10:18 [facility] [id number]) OT KHG-Dyxe-Zpoaibr General Evaluation Self-Feeding Ability Independent OT ADL-Dressing General Eval Upper Body Dressing Ability Minimal Assistance Lower Body Dressing Ability Standby Assistance Comments OT Dressing Comments SBA to use elementary education teacher to doff socks. Pt to bring her clothes later prior to going home. ERON to assist with bra closure. OT ADL-Toileting Comments OT Toileting Comments Per pt able to appropriately reach for her pericare needs and does not feel that she needs to use/get a toilet paper aid at this time. OT ADL-Bathing Bathing Type Bathing Type Shower General Evaluation Bathing Ability Moderate Assistance Areas Needing Assistance Wash/Dry Back,Wash/Dry Lower Extremities Comments OT Bathing Comments Assist to wash dry her feet and back, pt will probably benefit form shower chair with arms, grab bars in the shower, otherwise pt's will have to assist. M5 OT- IP IADL's Start: 01/27/20 16:36 Freq: Status: Active Protocol: Document 01/27/20 15:31 [facility] (Rec: 01/27/20 17:37 [facility] [id number]) OT-Instrumental Activities of Daily Living Home Safety Awareness Ability to Problem Solve Emergency Able to Problem Solve Situations Home Safety Comments Pt's family to assist with needs as needed. M6 OT- IP Functional Cognition Start: 01/27/20 16:36 Freq: Status: Active Protocol: Document 01/29/20 10:09 [facility] (Rec: 01/29/20 10:18 [facility] [id number]) Cognitive Factors Limiting Selfcare Function Cognitive Ability Safety Awareness Underestimates Need for Assistance Cognitive Comments Cognitive Assessment Comments Pt wanting to try to walk without the FWW and emphasized best at this time to use FWW, especially for uneven surfaces as she is still a little unsteady on her feet. M7 OT- IP Mobility and Balance Start: 01/27/20 16:36 Freq: Status: Active Protocol: Document 01/29/20 10:09 [facility] (Rec: 01/29/20 10:18 [facility] [id number]) OT-Transfer Assessment Sit to and From Stand Sit to and from Stand Standby Assistance Transfers Transfer Ability Standby Assistance,Contact Guard Assistance Technique Transfer Destination Chair,Shower Stall Devices Transfer Assistive Devices Gait Belt,Front Wheeled Walker Comments Mobility Comments SBA with FWW , CGA while stepping over the threshold of the shower. P OT- Balance Assessment Sitting Balance and Reactions Static Sitting Balance Ability Normal Dynamic Sitting Balance Ability Good Standing Balance and Reactions Static Standing Balance Ability Good Dynamic Standing Balance Ability Fair M8 OT- IP Objective Assessments Start: 01/27/20 16:36 Freq: Status: Active Protocol: Document 01/27/20 15:31 [facility] (Rec: 01/27/20 17:37 [facility] [id number]) OT Gross Range of Motion Upper Extremity Range of Motion Assessment Within Functional Limits OT Strength Upper Extremity Strength Assessment Within Functional Limits M9 OT- IP Assessment and Plan Start: 01/27/20 16:36 Freq: Status: Active Protocol: Document 01/29/20 10:09 [facility] (Rec: 01/29/20 10:18 [facility] [id number]) OT Summary Assessment and Plan Potential Rehabilitation Potential Excellent Analytic Complexity at Evaluation Low Summary OT Impairments Pain,Balance,Functional Mobility,Bathing,Shower Transfers Progress Towards Goals Progressing Toward Goals Assessment Summary Pt able to tolerate shower today and incorporate good safety for back precautions. Pt looking to go home today with assist from family. Pt emphasized to be sure to use FWW at all times as at time pt wanting to walk without the FWW and still a little unsteady on her feet. Goals Patient/Caregiver Education Goal Demonstrate Post-Op Precautions Days to Meet Goals 1 Frequency of Treatment Frequency Of Treatment Once a Day Discharge Recommendations OT Discharge Recommendations Home with Assistance Transportation Needs at Discharge Private Vehicle
--- NOTE | 2020-01-29 09:47 | PM.DS.1 ---
History of Present Illness History of Present Illness Date Patient Seen: 01/29/20 Time Patient Seen: 09:48 Chief complaint: [id number] Narrative: 49-year-old female with a recurrent lumbar disc herniation at L5-S1. She has had 2 previous herniations at this level, the 2nd time being treated operatively. New symptoms started over a month ago with recurrence of pain in the back and then running down the posterolateral aspect of the left leg. Primarily gluteal and leg pain. She tried medication, and epidural injection, home exercise program, and nothing was helping. She also has a recent history of cervical disc replacement 2 months ago. Discharge Providers Provider Date of admission: 01/26/20 10:54 Discharge Date: 01/29/20 Primary care physician: Gayla Fuentes PA-C Consults: 01/26/20 16:33 Consult to Occupational Therapy Evaluate & Treat Comment: Physician Instructions: Evaluate and treat Consult to Physical Therapy Evaluate & Treat Comment: Physician Instructions: Evaluate and Treat Discharge provider: Kendell Silva MD Summary Hospital Course Discharge Diagnosis: Recurrent lumbar disc herniation at L5-S1 Hospital Course: She is brought to the operating room on 01/26/2020 where she underwent a revision diskectomy and fusion (TLIF) at L5-S1. Postoperatively she gradually began progressing with physical therapy. She had good pain control the 1st day with an epidural at the time of surgery but then began having increasing pain the 2nd day. By the 3rd day she was having recurrence of a fair amount of the left leg pain. She was given a dose of IV steroids and this was much better. She was mobilizing well and able to get up and walk around independently by date of discharge. Status at Discharge Cognitive/behavioral status at discharge: oriented Functional status at discharge: independent ambulation Overall status at discharge: patient is progressing back to baseline Exam Vital Signs (past 8 hours): - 01/29/20 08:10 Temperature 98.5 F Pulse Rate 84 Respiratory Rate 16 Blood Pressure 119/79 Pulse Oximetry 99 Oxygen Delivery Method Room Air Oxygen Flow Rate 0 Const Orientation: alert and oriented x3 Back/Spine/Pelvis Other: Mild drainage. 5/5 motor both lower extremities. Objective Labs Result Diagrams: 01/27/20 05:44 Discharge Plan Discharge Plan Patient Disposition: Home Discharge comment: Follow-up 1.5 weeks Discharge orders & Medications Prescriptions: New hydroxyzine pamoate 25 mg Capsule 25 mg PO Q4HR PRN (Reason: spasms) Qty: 20 RF: 0 oxycodone 5 mg Tablet 5 mg PO Q3HR PRN (Reason: Pain, Moderate (4-6)) Qty: 30 RF: 0 celecoxib [Celebrex] 200 mg Capsule 200 mg PO BID PRN (Reason: pain) Qty: 60 RF: 0 methylprednisolone [Medrol (Darius)] 4 mg tablets,dose pack See Rx Instructions .ROUTE .COMPLEX Qty: 21 RF: 0 Continued pregabalin [Lyrica] 150 mg Capsule 150 mg PO BID RF: 0 gabapentin 600 mg Tablet 600 mg PO TID RF: 0 loratadine [Claritin] 10 mg Tablet 10 mg PO DAILY RF: 0 Discontinued naproxen [Naprosyn] 500 mg Tablet 500 mg PO BID RF: 0 hydroxyzine pamoate [Vistaril] 25 mg Capsule 25 mg PO Q6H PRN (Reason: Spasms) RF: 0 Follow up/Referrals: Gayla Murphy PA-C [Primary Care Provider] - Diet/Activity/Treatments Diet: Diet as Tolerated Activity: limited BLT 10 lbs lift Skin/Wound/Dressing Care Report to your healthcare provider any signs of infection, such as:: chills, fever, night sweats, increased pain, unusual drainage and unusual redness Dressing: may change dressing and shower Saturday Visit Report/Discharge Packet Instructions: DI for Prescription Opioid Use, DI for Transforaminal Lumbar Interbody Fusion Stand Alone Forms: Surgery Discharge Visit Report Forms: Patient Portal/API, Stroke Signs & Symptoms Discharge Data Primary Care Provider: Gayla Murphy Quality VTE Deep Vein Thrombosis/Pulmonary Embolism Present on Admission: No
--- NOTE | 2020-01-29 09:55 | PC.NURSE ---
Patient is going to discharge to home today. Given 1 oxycodone and helpful with pain. Back dressing changed after patients shower. Given 1 dose of steroids. She is resting comfortably.
--- NOTE | 2020-01-29 11:17 | PT.IPTN ---
Current Diagnoses Intervertebral disc disorders with radiculopathy, lumbar region (01/26/20) Other specified postprocedural states (01/26/20) Surgery Performed Operation Date: 01/26/20 13:15 Actual Procedures p L5-S1 redo Left discectomy & instrumented fusion (TLIF) w/bone graft - Kendell Silva MD Physical Therapy Treatment Note M2 PT-IP Current Condition Start: 01/27/20 11:34 Freq: NEEDED Status: Discharge Protocol: Document 01/27/20 09:10 AB (Rec: 01/27/20 12:03 AB [email or web address]) Physical Therapy Current Condition Current Condition Evaluation Date 01/27/20 Treatment Diagnosis s/p L5S1 revision diskectomy/ TLIF; difficulty in walking Onset Date 01/26/20 Precautions Lumbar Precautions Log Roll,No Twisting,Limit Bending,Lifting Restriction of 10 lbs,Gait Belt above Incisional Area M3 PT-IP Subjective Start: 01/27/20 11:34 Freq: NEEDED Status: Discharge Protocol: Document 01/29/20 10:53 KS (Rec: 01/29/20 12:35 KS [id number]) Subjective Physical Therapy Visit Type Type Treatment Note Visit Start Time 10:53 Visit Stop Time 11:17 Total Visit Minutes 24 Number of CORK TILE FLOOR LAYER Visits 3 Physical Therapy Visit Comments Patient Comments Pt agreeable to working with therapy. Pts present for caregiver training. M4 PT-IP Mobility and Gait Start: 01/27/20 11:34 Freq: NEEDED Status: Discharge Protocol: Document 01/29/20 10:53 KS (Rec: 01/29/20 12:35 KS [id number]) PT-Bed Mobility Assessment Rolling Type of Rolling Log Rolling,Roll to Left Level of Assist Standby Assistance Supine to Sit Supine to Sit Standby Assistance Sit to Supine Sit to Supine Standby Assistance Scooting Scooting to Edge of Bed Standby Assistance Scooting Up and Down in Bed Standby Assistance PT-Transfer Assessment Sit to and From Stand Sit to and from Stand Standby Assistance,Contact Guard Assistance,1 Person Assistance,Use of Upper Extremities Equipment Transfer Assistive Device Gait Belt,Front Wheeled Walker Orthotic/Prosthetic Devices or Brace: No Transfers Transfer Destination Bed Transfer Technique ambulated using FWW Transfer Ability Level of Assist Standby Assistance,Contact Guard Assistance,Use of Upper Extremities Comments Mobility Comments Pt was exiting bathroom upon arrival from therapy and ambulated I w/o AD from bathroom to sink to perform handwashing. Pts available for caregiver training. Pt then ambulated to bed, SBA for stand<>sit. Able to recall all precautions. Pt then correctly performed logroll into bed and logroll out of bed SBA. Instructed on application of gait belt. Pt then sit<>stand from bed SBA w/ FWW and ambulated w/ CGA provided by . Pt ambulated slowly and cautiously w/ proper use of FWW. Pt ambulated ~40 ft from room to stairs w/ FWW and then performed 3 steps x2 w/ SBA to CGA provided by . Pt ascended/descended stairs w/ step to gait pattern, sideways w/ both hands using railing. Pt then ambulated additional 40 ft back to room w/o AD and CGA provided by . Pt was safe w/o AD, but reccommended use of walker at home for balance/safety. Pt returned to room, SBA for stand<>sit in chair. Pt and both state they feel safe to return home, left w/ all needs in reach. Gait Assessment Gait Gait Assistance Required: Standby Assistance,Contact Guard Assist,1 Person Assist Distance (Feet) 80 Able to Maintain Weight Bearing Status Yes During Gait Assistive Devices Assistive Device None,Gait Belt,Front Wheeled Walker Orthotic/Prosthetic Devices or Brace: No Gait Deviations General Gait Pattern Antalgic,Decreased Stride Length,Decreased Feet Clearance Factors Limiting Gait Function Factors Limiting Gait Function Decreased Activity Tolerance, Decreased Sensation,Decreased Strength,Limited Range of Motion,Pain Comments Gait Comments Please refer to mobility section for details. Stair Climbing Assessment Evaluation Level of Assist On Stairs Standby Assistance,Contact Guard Assistance,1 Person Assistance Devices Stair Climbing Assistive Devices Left Railing Technique/Endurance Stair Climbing Direction Ascend and Descend Stair Climbing Technique Step to Step Number of Steps Climbed 3 Stair Climbing Set # Repetitions (reps) 2 Comments Stair Climbing Comments Pt ascended/descended 3 steps x2, w/ SBA ascend and CGA descend provided safely by pts /caregiver. Pt uses L hand rail w/ sideways step to step pattern while ascending/ descending. PT-Balance Assessment Sitting Balance and Reactions Static Sitting Balance Ability Normal Dynamic Sitting Balance Ability Good Standing Balance and Reactions Static Standing Balance Ability Good Dynamic Standing Balance Ability Good Device Used FWW M5 PT-IP Objective Assessments Start: 01/27/20 11:34 Freq: NEEDED Status: Discharge Protocol: Document 01/27/20 09:10 AB (Rec: 01/27/20 12:03 AB [email or web address]) Orientation Orientation/Cognition Level of Alertness Alert Orientation Name,Age,Birthday,Month,Date, Year,Day of Week,Place, Situation Language Function Ability No Deficits Noted Safety Awareness Understands Safety Issues Memory Description No Deficits Noted Gross Range of Motion Lower Extremity ROM Assessment Within Functional Limits Strength Lower Extremity Strength Assessment Within Functional Limits Coordination Assessment Gross Coordination Gross Coordination WNL Sensation Assessment Comments Sensation Comments Able to determine light touch during testing but stated that sensation is not 100% and still has some numbness Muscle Tone Muscle Tone WNL Yes M6 PT-IP Treatment Start: 01/27/20 11:34 Freq: NEEDED Status: Discharge Protocol: Document 01/29/20 10:53 KS (Rec: 01/29/20 12:35 KS [id number]) Physical Therapy Treatment Education Education Provided Precautions,Safety Other Treatments Other Treatment Performed caregiver training w/ pts M7 PT-IP Assessment and Plan Start: 01/27/20 11:34 Freq: NEEDED Status: Discharge Protocol: Document 01/29/20 10:53 KS (Rec: 01/29/20 12:35 KS [id number]) PT Summary Assessment and Plan Potential Rehabilitation Potential Excellent Status of Condition at Evaluation Stable Summary Impairments Pain,ROM,Strength,Balance, Coordination,Sensation,Tone, Cognition,Bed Mobility, Transfers,Gait,Activity Tolerance Progress Towards Goals Progressing Toward Goals,Slow Progress due to Pain Assessment Summary Pt SBA for bed mobility, SBA to CGA for ambulation and stairs. Pt and successfully completed caregiver training including bed mobility, log roll, transfers, ambulation, and stair training all of which were completed safely. Goals Bed Mobility Goal Independent Transfer Goal Independent,Front Wheeled Walker Gait Goal Independent,Front Wheel Walker Gait Distance 150 Other Goals up/down 2 steps using SPC and PLANT OPERATOR CONTROL ROOM OPERATOR CGA up/down 15 steps R rail SBA Days to Meet Goals 5 Frequency of Treatment Frequency Of Treatment Twice a Day Treatment Plan Physical Therapy Treatment Plan Bed Mobility Training,Transfer Training,Gait Training, Therapeutic Exercise,Balance Retraining,Post Op Education, Discharge Planning,Hot or Cold Pack,Neuromuscular Re-ed, Coordination Retraining,Manual Therapy Other Recommendations and Next Treatment ambulation further distance, Focus stair climbing SPC 2 step mgt, 14 steps L HR, bed mobility continue log roll Recommendations To Nursing Amount of Assist Needed 1 Person Assist Discharge Recommendations PT Discharge Recommendations Home with Assistance Transportation Needs at Discharge Private Vehicle
--- NOTE | 2020-01-29 15:00 | CM.DPC ---
DCP: continued: Case discussed in Team Rounds with PT/OT noting pt was doing well for home setting and much improved today after steroid treatment. She was able to go home with her and orthopedic followup as well as 4 doses of prednisone.
== END 2020-01-29 11:21 | disposition home or self-care (01) | DRG 455 ==
PROVIDERS: Admitting Provider Orthopaedic Surgery; Referring Provider Orthopaedic Surgery; Visit Provider Orthopaedic Surgery
PROC: 0SG30AJ Fusion of Lumbosacral Joint with Interbody Fusion Device, Posterior Approach, Anterior Column, Open Approach (ICD-10-PCS; principal; 2020-01-26 13:15)
DX: M51.17 Intervertebral disc disorders with radiculopathy, lumbosacral region (principal); I10 Essential (primary) hypertension; G89.18 Other acute postprocedural pain; Z87.891 Personal history of nicotine dependence
CPT/HCPCS: 36415; 72100; 76000; 85014; 85018; 97110; 97116; 97161; 97165; 97530; 97535; C1776; J0131; J0330; J0595; J0690; J1100; J1170; J2274; J2405; J2704; J3010

== ENCOUNTER → 2020-05-06 13:16 | Outpatient (CLI) | payer OTHER, SELFPAY ==
[2020-01-26 16:59] VITALS: BMI 26.9
--- NOTE | 2020-05-06 13:40 | DI.CT.S_ITS ---
PROCEDURE: CT ANGIO ABDOMEN PELVIS INDICATIONS: Intervertebral disc disorders with radiculopathy, TECHNIQUE: After the administration of intravenous contrast, 2.5 mm thick sections acquired from the diaphragm to the symphysis. . For radiation dose reduction, the following was used: automated exposure control. COMPARISON: None. FINDINGS: Image quality: Excellent. Aorta and IVC: No aneurysm or dissection, no IVC thrombosis. Mesenteric arteries and veins: Celiac trunk, superior and inferior mesenteric arteries appear patent. No mesenteric vein thrombosis. Right pelvic arteries and veins: No arterial embolus or deep venous thrombosis. Left pelvic arteries and veins: No arterial embolus or deep venous thrombosis Extravascular soft tissues: Lung bases are clear except for a small degree of alveolar infiltration at the deep posterior right costophrenic sulcus and 2 separate focal radiodensity is at the posterior right lower lobe. One measures 6 x 13 mm and the 2nd, more inferiorly at the level of the diaphragmatic dome posteriorly measures 1.2 cm . Heart size is normal. Liver is normal in size and enhancement. Gallbladder appears normal . Biliary system is non dilated. Pancreas enhances normally. Spleen is normal in size and enhancement. No adrenal nodules. Kidneys are normal in size and enhancement, without hydronephrosis. Non opacified bowel loops are normal in wall thickness and caliber but there is moderate colonic obstipation. No free fluid or air. No retroperitoneal or mesenteric adenopathy. No ventral hernias. No suspicious bony lesions. No vertebral body compression fractures. There is expected postoperative change at the lumbosacral junction after posterior fusion procedure. No abnormal fluid collection or malalignment is found. IMPRESSION: Moderate colonic obstipation. No evidence of arterial embolus, aneurysm, or dissection. No evidence of venous thrombosis. A source of current reported pain is not seen. Note is made of 2 separate focal radiodensities abutting the pleural surface at the right lower lobe, posteriorly, measuring 13 mm and 12 mm respectively. Etiology is uncertain. This study is not optimized for pulmonary embolus detection, but within the small portion of the pulmonary arteries included at the inferior lung bases no definite embolus is suspected. These 2 radiodensities would not be accurately detected by plain film. Follow-up CT scanning to confirm resolution utilizing noncontrast technique in 3-6 months may be warranted, depending on the clinical status. Postoperative changes of spine fusion at the lumbosacral junction as expected. Dictated by: Mendez Livingston M.D. on 05/06/2020 at 14:13 Approved by: Mendez Livingston M.D. on 05/06/2020 at 14:23
== END ==
PROVIDERS: PCP Family Medicine; Referring Provider Orthopaedic Surgery; Visit Provider Orthopaedic Surgery
DX: M51.16 Intervertebral disc disorders with radiculopathy, lumbar region (principal); K59.00 Constipation, unspecified; Z98.1 Arthrodesis status
CPT/HCPCS: 74174; Q9967